=== PATIENT | female | born 1960 ===

== ENCOUNTER 2024-10-04 06:00 | Outpatient (CLI) | payer OTHER ==
[~2024-10-04] VITALS: Ht 157.5 cm; Wt 77.6 kg
[2024-10-04] MEDS ORDERED: ZESTRIL10 M1 PO (08:53)
[2024-10-04] MEDS ORDERED: ROSUVASTATIN CA20 MG PO (08:54)
[2024-10-04 08:59] VITALS: BP 135/81
[2024-10-04 09:13] LABS: HEMATOCRIT 34.8 % (36.0-45.00); HEMOGLOBIN 11.8 g/dL (12.0-15.00); MEAN CELL VOLUME 85.9 fL (80.00-100.00); MEAN CORPUSCULAR HEMOGLOBIN 29.3 pg (27.00-32.0); MEAN CORPUSCULAR HGB CONC 34.1 g/dl (32.0-36.0); PLATELET COUNT 299 K/uL (150-450); RED BLOOD COUNT 4.04 M/uL (4.00-6.00); RED CELL DISTRIBUTION WIDTH 14.1 % (11.5-14.5)
[2024-10-04 09:17] LABS: URINE APPEARANCE Clear; URINE BILIRRUBIN Negative (NEGATIVE); URINE BLOOD Small; URINE COLOR Yellow; URINE GLUCOSE Negative (NEGATIVE); URINE KETONE Negative (NEGATIVE); URINE LEUKOCYTE Negative; URINE NITRATE Negative; URINE PROTEIN Negative (NEGATIVE); URINE UROBILINOGEN 0.2 E.U./dl
[2024-10-04 09:21] LABS: URINE BACTERIA 94.2 uL (0.0-1933); URINE EPITHELIAL CELLS 3.3 uL (0.0-38.8); URINE RBC 91.1 uL (0.0-20.8); URINE WBC 2.3 uL (0.0-23.2)
[2024-10-04 09:36] LABS: INR 0.96; PARTIAL THROMBOPLASTIN TIME 25.4 SECONDS (22.0-34.0); PROTHROMBIN TIME 10.5 SECONDS (9.0-11.5)
[2024-10-04 10:40] LABS: ALBUMIN 3.6 gm/dL (3.4-5.0); BILIRUBIN TOTAL 0.72 mg/dL (0.3-1.2); CALCIUM 8.9 mg/dL (8.5-10.1); CREATININE SERUM 0.59 mg/dL (0.55-1.02); GFR 102.29; GLOBULINA 2.8 G/DL (2.4-3.5); POTASSIUM 3.96 mEq/L (3.5-5.1); TOTAL PROTEIN 6.4 gm/dL (6.4-8.2)
== END 2024-10-04 06:01 | disposition home or self-care (01) ==
LOC: RAD 06:00 → EDSTATUS 10-15 07:30 → SURH 10-15 07:30
PROVIDERS: ATTEND Orthopaedic Surgery
DX: D68.9 Coagulation defect, unspecified (principal); E78.2 Mixed hyperlipidemia; N39.0 Urinary tract infection, site not specified; R07.9 Chest pain, unspecified; M17.11 Unilateral primary osteoarthritis, right knee; M85.661 Other cyst of bone, right lower leg

== ENCOUNTER 2024-12-11 09:00 | Inpatient (IN) | payer OTHER ==
[~2024-12-11] VITALS: Ht 157.5 cm; Wt 77.6 kg
[~2024-12-11 09:00] MED LIST: ROSUVASTATIN CA20 MG PO; ZESTRIL10 M1 PO
[2024-12-11 10:58] LABS: URINE APPEARANCE Clear; URINE BILIRRUBIN Negative (NEGATIVE); URINE BLOOD Moderate; URINE COLOR Yellow; URINE GLUCOSE Negative (NEGATIVE); URINE KETONE Negative (NEGATIVE); URINE LEUKOCYTE Negative; URINE NITRATE Negative; URINE PROTEIN Negative (NEGATIVE); URINE UROBILINOGEN 0.2 E.U./dl
[2024-12-11 11:05] LABS: URINE BACTERIA 74.6 uL (0.0-1933); URINE EPITHELIAL CELLS 2.6 uL (0.0-38.8); URINE WBC 2.6 uL (0.0-23.2)
[2024-12-11 11:09] LABS: BASO % 0.4 % (0.1-1.2); EOS # 0.18 (0.04-0.54); EOS % 2.4 % (0.7-7.0); HEMATOCRIT 35.3 % (34.1-44.9); HEMOGLOBIN 11.7 g/dL (11.2-15.7); LYMPH # 1.72 (1.18-3.74); LYMPH % 23.2 % (19.3-53.1); MEAN CORPUSCULAR HEMOGLOBIN 29.3 pg (25.6-32.2); MONO # 0.39 (0.24-0.82); MONO % 5.3 % (4.7-12.5); NEUT # 5.07 (1.56-6.13); NEUT % 68.3 % (34.0-71.1); PLATELET COUNT 302 K/uL (163-369); RED BLOOD COUNT 3.99 M/uL (3.93-5.22); RED CELL DISTRIBUTION WIDTH 13.4 % (11.6-14.4)
[2024-12-11 11:12] LABS: URINE CAST 0.14 uL (0.0-1.40)
[2024-12-11 11:43] LABS: INR 0.96; PARTIAL THROMBOPLASTIN TIME 25.1 SECONDS (22.0-34.0); PROTHROMBIN TIME 10.5 SECONDS (9.0-11.5)
[2024-12-11 11:55] LABS: ALBUMIN 3.6 gm/dL (3.4-5.0); BILIRUBIN TOTAL 0.61 mg/dL (0.3-1.2); CALCIUM 8.7 mg/dL (8.5-10.1); CREATININE SERUM 0.61 mg/dL (0.55-1.02); GFR 98.43; GLOBULINA 2.9 G/DL (2.4-3.5); POTASSIUM 3.83 mEq/L (3.5-5.1); TOTAL PROTEIN 6.5 gm/dL (6.4-8.2)
[2024-12-11 12:09] VITALS: BP 157/90
[2024-12-11 12:12] VITALS: BP 119/72
[2024-12-17] MEDS ORDERED: CEFAZOLIN SODIUM 1,000 MG VIAL ONE ×2 (07:43→13:13)
[2024-12-17] MEDS ORDERED: TRANEXAMIC ACID 100MG/1ML (1000MG) AMPUL IV ONE (07:43)
[2024-12-17] MEDS ORDERED: ONDANSETRON HCL 2 MG/ML VIAL IV PRN (09:30)
[2024-12-17] MEDS ORDERED: OxyCODONE HCL 5 MG TABLET (ROXICODONE) PO PRN (09:30)
[2024-12-17] MEDS ORDERED: KETOROLAC TROMETHAMINE 60 MG VIAL IM ONE (09:56)
[2024-12-17] MEDS ORDERED: VANCOMYCIN HCL 1,000 MG VIAL ONE (09:56)
[2024-12-17] MEDS ORDERED: ENALAPRILAT DIHYDRATE 1.25 MG/ML VIAL IV PRN (10:45)
[2024-12-17] MEDS ORDERED: ACETAMINOPHEN 325 MG TABLET PO SCH (12:00)
[2024-12-17] MEDS ORDERED: MORPHINE SULFATE 4 MG/ML CARTRIDGE IV SCH (12:00)
[2024-12-17] MEDS ORDERED: CEFAZOLIN SODIUM 1,000 MG VIAL IV SCH (12:00)
[2024-12-17 14:46] VITALS: BP 157/90; O2SAT 98
[2024-12-17 16:41] VITALS: BP 133/68; O2SAT 98
[2024-12-17] MEDS ORDERED: ORPHENADRINE CITRATE 100 MG TABLET PO SCH (21:00)
[2024-12-17] MEDS ORDERED: GABAPENTIN 100 MG CAPSULE PO SCH (21:00)
[2024-12-18 00:58] VITALS: BP 152/69; O2SAT 95
[2024-12-18 07:01] LABS: BASO % 0.1 % (0.1-1.2); EOS # 0.01 (0.04-0.54); EOS % 0.1 % (0.7-7.0); HEMATOCRIT 29.9 % (34.1-44.9); LYMPH # 1.16 (1.18-3.74); LYMPH % 10.9 % (19.3-53.1); MEAN CORPUSCULAR HEMOGLOBIN 28.2 pg (25.6-32.2); MONO # 0.64 (0.24-0.82); NEUT # 8.78 (1.56-6.13); NEUT % 82.5 % (34.0-71.1); PLATELET COUNT 285 K/uL (163-369); RED BLOOD COUNT 3.55 M/uL (3.93-5.22)
[2024-12-18 08:18] VITALS: BP 156/75; O2SAT 96
[2024-12-18] MEDS ORDERED: APIXABAN 2.5 MG TABLET PO SCH (09:00)
[2024-12-18] MEDS ORDERED: LISINOPRIL 10 MG TABLET PO SCH (09:00)
[2024-12-18 11:28] LABS: COVID-19 AG NEGATIVE (NEGATIVE)
[2024-12-18 16:05] VITALS: BP 179/73; O2SAT 99
[2024-12-18] MEDS ORDERED: SOD FERRIC GLUC COMPLX/SUCROSE 62.5 MG/5 ML AMPUL IV SCH (17:00)
[2024-12-18] MEDS ORDERED: VITAMIN B COMPLEX 1 EACH PO SCH (17:00)
[2024-12-18] MEDS ORDERED: Cyanocobalamin/Mecobalamin 1 TAB.SL SL SCH (17:00)
[2024-12-18] MEDS ORDERED: IRON FUM,PS/FOLIC ACID/VITC/B3 1 CAP CAPSULE PO SCH (17:00)
[2024-12-19 00:29] VITALS: BP 183/91; O2SAT 96
[2024-12-19 06:58] LABS: BASO % 0.3 % (0.1-1.2); EOS # 0.03 (0.04-0.54); EOS % 0.3 % (0.7-7.0); HEMATOCRIT 29.7 % (34.1-44.9); HEMOGLOBIN 9.7 g/dL (11.2-15.7); LYMPH # 1.09 (1.18-3.74); LYMPH % 9.1 % (19.3-53.1); MONO # 0.95 (0.24-0.82); MONO % 7.9 % (4.7-12.5); NEUT # 9.78 (1.56-6.13); NEUT % 81.7 % (34.0-71.1); PLATELET COUNT 252 K/uL (163-369); RED BLOOD COUNT 3.47 M/uL (3.93-5.22); RED CELL DISTRIBUTION WIDTH 13.5 % (11.6-14.4)
[2024-12-19 08:00] VITALS: BP 157/72; O2SAT 100
[2024-12-19] MEDS ORDERED: NORFLEX100MG PO (10:19)
[2024-12-19] MEDS ORDERED: ELIQUIS2.5 MG PO (10:19)
[2024-12-19] MEDS ORDERED: GABAPENTIN100 MG PO (10:19)
[2024-12-19] MEDS ORDERED: OXYCODONE HCL5 MG PO (10:20)
[2024-12-19 16:23] VITALS: BP 160/82; O2SAT 99
== END 2024-12-19 19:59 | DRG 470 ==
LOC: O/R 12-17 05:45 → SURG 12-17 05:45 → SURH 12-17 09:00 → SURG 12-17 13:14
PROVIDERS: ADMIT Orthopaedic Surgery; ATTEND Orthopaedic Surgery
PROC: 0SRC0JZ Replacement of Right Knee Joint with Synthetic Substitute, Open Approach (ICD-10-PCS; principal; 2024-12-17 12:30)
DX: M17.11 Unilateral primary osteoarthritis, right knee (principal); D62 Acute posthemorrhagic anemia; M85.661 Other cyst of bone, right lower leg